=== PATIENT | female | born 1960 | race Caucasian/White ===

== ENCOUNTER → 2020-09-13 13:47 | Outpatient (CLI) | payer OTHER, SELFPAY | PROVIDERS: PCP Family Medicine; Referring Provider Family Medicine; Visit Provider Family Medicine | DX: N39.0 Urinary tract infection, site not specified (principal) | CPT/HCPCS: 87077; 87086; 87088; 87186 ==

== ENCOUNTER 2022-06-01 22:26 | Emergency (ER) | payer OTHER, SELFPAY ==
[2022-06-01 22:31] VITALS: PULSE 112; RESP 36; TEMP 36.4; O2SAT 97; BMI 26.5
--- NOTE | 2022-06-01 22:46 | EDS_ITS ---
HPI HPI - GI History of Present Illness Chief Complaint: Nausea/Vomiting/Diarrhea Informant: patient Nausea/Vomiting/Emesis GI Symptom: Positive for Nausea and Vomiting Onset: Hours (3) Quality: Positive for Nonbilious; Negative for Blood streaks or Coffee ground Severity: Moderate Diarrhea/Melena/Hematochezia GI Symptom: Positive for Diarrhea; Negative for Melena or Hematochezia Onset: Hours (3) Stool Quality: Positive for Watery; Negative for Mucous, Black, Maroon or BRB per rectum Severity: Severe Episodes: 6 Associated Symptoms Associated Symptoms: Negative for Dysuria, Frequency or Hematuria Narrative Narrative: Patient started having vomiting and diarrhea 3 hours ago and has not been able to stop either. She denies any abdominal pain. She has developed chills but does not feel like she has a fever, she cannot stop shaking. She denies any known sick contacts with similar. She denies any suspicious food ingestions including uncooked meats or raw seafood. She has not traveled out of the area recently. She denies any recent antibiotics. She denies any new water sources that she has ingested. She presents during high prevalence of viral gastroenteritis in this area. PFSH PFSH Medical History no medical history no medical history Home Medications ondansetron 4 mg disintegrating tablet 8 mg PO Q8H PRN PRN Nausea #20 tabs 06/02/22 [Rx Last Taken Unknown] Allergy/AdvReac Type Severity Reaction Status Date / Time No Known Allergies Allergy Verified 06/01/22 22:33 Surgical History no surgical history no surgical history Social History Smoking Status: Never smoker ROS ROS ED Constitutional Constitutional ED: Reports chills and malaise; Denies fever(s) Eyes Eyes: Denies change in vision or diplopia ENT ENT ED: Denies rhinorrhea or sore throat Cardiovascular Cardiovascular: Denies chest pain or palpitations Respiratory/Chest Respiratory/Chest: Denies cough or dyspnea Gastrointestinal Gastrointestinal: Reports diarrhea, nausea and vomiting; Denies abdominal pain, coffee ground emesis, hematemesis, hematochezia or melena Genitourinary Genitourinary ED: Denies dysuria or hematuria Musculoskeletal Musculoskeletal: Denies back pain or neck pain Integumentary Denies abscess or rash Neurologic Neurologic: Denies headache(s), paresthesias or weakness Psychiatric Psychiatric: Denies depression or suicidal thoughts EXAM Physical Exam Const Vital Signs: 06/01/22 22:31 06/02/22 00:42 Temperature 97.5 F L Temperature Source Temporal Pulse Rate 112 H Respiratory Rate 36 H Blood Pressure 130/62 H Blood Pressure Mean 84 Pulse Ox 97 99 Oxygen Delivery Method Room Air Room Air Positive well nourished and well developed Constitutional Narrative: Tremulous General Appearance ED: well developed and NAD HEENT Reports moist mucous membranes normocephalic and atraumatic Eyes PERRL and EOMs intact bilaterally Neck full ROM and supple Resp normal respiratory effort and clear to auscultation bilaterally Cardio regular rate, regular rhythm and no murmurs Rate: tachycardic GI non-tender and non-distended GI Narrative: Bowel sounds are present Auscultation: hypoactive bowel sounds Palpation: soft Back/Spine no CVA tenderness General Back: other FROM Extremity normal to inspection and full ROM General Extremety ED: Negative for edema, pulses abnormal or tenderness General Extremity: Negative for edema or pulses abnormal Neuro oriented x3, CN's II-XII intact bilaterally and no sensory deficits noted Sensorium / Orientation: awake and alert Motor Exam: strength 5/5 throughout Psych Mood & Affect: anxious Skin no rashes or lesions noted and no wounds MDM MDM MDM Narrative Medical decision making narrative: Patient was treated with a liter of fluid and Zofran while I obtain some labs, those are all noted. She does have a leukocytosis with predominance of neutrophils, chemistries and liver enzymes are noted, mildly prerenal and slight elevation of alkaline phosphatase which is nonspecific and could be due to vomiting. Patient has no risk factors for bacterial etiologies here, although that is still in the differential, she did eventually have diarrhea here which I am sending for studies, but in the meantime I would assume this is viral until proven otherwise especially given the high prevalence of that in the area recently. She was doing better on reevaluation still little nauseated but had no more vomiting, she was treated with Reglan and felt better still and was up for attempting oral fluids which she tolerated well. Patient produced a small amount of diarrhea it was enough for us to run a fecal white blood cell lactoferrin which was positive. This is nonspecific, but I think in context it would be reasonable to have the patient obtain enteric bacterial panel and C. difficile primarily. She prefers to go home and collect at home given the hour of the night, we are sending outpatient prescriptions for those labs and she can follow-up with her doctor. We will send her home with antiemetics, close outpatient follow-up with her doctor return if worse. Lab Data Attestation: I reviewed the patient's lab results. Labs: Laboratory Results - last 24 hr 06/01/22 06/01/22 22:30 22:30 WBC 14.6 H RBC 5.01 Hgb 15.6 H Hct 47.9 H MCV 95.6 MCH 31.1 MCHC 32.6 RDW Std Deviation 47.0 H RDW Coeff of Charlette 13.2 Plt Count 289 MPV 9.6 Immature Gran % (Auto) 0.200 Neut % (Auto) 92.4 H Lymph % (Auto) 3.1 L [place] % (Auto) 3.5 Eos % (Auto) 0.3 Baso % (Auto) 0.5 Absolute Neuts (auto) 13.5 H Absolute Lymphs (auto) 0.45 L Nucleated RBC % 0 Differential Comment SCANNED Sodium 139 Potassium 3.9 Chloride 103 Carbon Dioxide 21.0 Anion Gap 15 BUN 20 H Creatinine 0.93 Estim Creat Clear Calc 51.22 Est GFR (MDRD) Af Amer 78 Est GFR (MDRD) Non-Af 64 BUN/Creatinine Ratio 21.5 H Glucose 168 H Calcium 9.9 Total Bilirubin 0.70 AST 27 ALT 27 Alkaline Phosphatase 176 H Total Protein 8.7 H Albumin 4.0 Globulin 4.7 H Albumin/Globulin Ratio 0.9 Lipase 152 Discharge Plan Triage Chief Complaint: Nausea/Vomiting/Diarrhea ED Provider: Randy Franklin Dx/Rx/DC Orders Clinical Impression: Gastroenteritis Instructions: ED Gastroenteritis, Viral (Adult) Prescriptions: New ondansetron [ondansetron] 4 mg tablet,disintegrating 8 mg PO Q8H PRN PRN (Reason: Nausea) Qty: 20 0RF Other Ambulatory Orders: ENTERIC PATHOGEN PANEL STOOL (Routine) Timeframe: 3 Days Facility: [facility] [place] - Location: Laboratory Ordered By: Dr. Randy Franklin CDIFF (PCR) (Routine) Timeframe: 3 Days Facility: [facility] [place] - Location: Laboratory Ordered By: Dr. Randy Franklin Primary Care Provider: Chaparro Ornelas Referrals: Chaparro Ornelas MD [Primary Care Provider] - 3-5 Days if not improving Disposition Disposition: Home, Self Care
[2022-06-01 22:53] LABS: Absolute Lymphocyte Count 0.45 X10^3/uL (0.83-4.51); Absolute Neutrophil Count 13.5 X10^3/uL (2.0-7.7); Basophil# 0.07 X10^3/uL; Basophil% 0.5 % (0-1); Eosinophil# 0.04 X10^3/uL; Eosinophils% 0.3 % (0-5); Hematocrit 47.9 % (37-47); Hemoglobin 15.6 g/dL (12.0-15.0); Lymphocyte # 0.45 X10^3/ul (0.83-4.51); Lymphocyte % 3.1 % (19-41); Mean Corp Hgb Conc 32.6 g/dL (32-36); Mean Corpuscular Hgb 31.1 pg (27.0-32.0); Mean Corpuscular Volume 95.6 fL (81-99); Mean Platelet Vol. 9.6 fl (6.2-12.0); Monocyte# 0.51 X10^3/uL; Monocyte% 3.5 % (0-10); NRBC Flagged by Analyzer 0 % (0-5); Neutrophil # 13.46 X10^3/uL (2.7-7.7); Neutrophil % 92.4 % (47-70); POSITIVE DIFFERENTIAL YES; Platelet Count 289 K/mm3 (150-450); RBC Distribution Width CV 13.2 % (11.6-14.6); Red Blood Count 5.01 M/mm3 (4.2-5.4); White Blood Count 14.6 K/mm3 (4.4-11.0)
[2022-06-01] MEDS: 0.9% Normal Saline 1,000 ML 1000 ML IV (23:00)
[2022-06-01] MEDS: Ondansetron 4 MG/2 ML Vial IV (23:01)
[2022-06-01 23:09] LABS: ALB/GLOB Ratio 0.9 RATIO (0.9-2.4); AST(SGOT) 27 U/L (15-37); Alanine Aminotransfer ALT/SGPT 27 U/L (13-56); Alkaline Phosphatase 176 U/L (45-117); Anion Gap 15 (5-15); BUN 20 mg/dL (7-18); BUN/Creat Ratio 21.5 RATIO (10-20); Calcium,Total 9.9 mg/dL (8.5-10.1); Chloride 103 mmol/L (98-107); Creatinine, Serum 0.93 mg/dL (0.55-1.02); EST Glomerular Filtration Rate 64 mL/min (>60); Est Glom Filt Rate - Afr Amer 78 mL/min (>60); Estimated Creatinine Clearance 51.22 ml/min; Globulin 4.7 g/dL (2.2-4.2); Glucose 168 mg/dL (74-106); Lipase 152 U/L (73-393); Potassium 3.9 mmol/L (3.5-5.1); Protein, Total 8.7 g/dL (6.4-8.2); Sodium Level 139 mmol/L (136-145)
[2022-06-01 23:11] LABS: Differential Comment SCANNED; Differential Indicated SCAN CRITERIA MET
[2022-06-01] MEDS: Metoclopramide 10 MG/2 ML Vial 5 MG IV (23:55)
[2022-06-02 00:42] VITALS: BP 130/62; O2SAT 99
[2022-06-02 01:51] VITALS: BP 131/64; PULSE 98; RESP 16; O2SAT 97
== END 2022-06-02 02:10 | disposition home or self-care (01) ==
PROVIDERS: Emergency Provider Emergency Medicine; PCP Family Medicine; Visit Provider Emergency Medicine
DX: K52.9 Noninfective gastroenteritis and colitis, unspecified (principal)
CPT/HCPCS: 80053; 83630; 83690; 85025; 96361; 96374; 96375; 99285; J7030; J2405

== ENCOUNTER 2024-05-20 08:13 | Outpatient (CLI) | payer MEDICARE, OTHER, SELFPAY ==
[2024-05-20 10:08] LABS: Absolute Lymphocyte Count 1.19 X10^3/uL (0.83-4.51); Absolute Neutrophil Count 6.4 X10^3/uL (2.0-7.7); Basophil# 0.09 X10^3/uL; Basophil% 1.1 % (0-1); Eosinophil# 0.08 X10^3/uL; Eosinophils% 0.9 % (0-5); Hematocrit 43.1 % (37-47); Hemoglobin 14.5 g/dL (12.0-15.0); Lymphocyte # 1.19 X10^3/ul (0.83-4.51); Mean Corp Hgb Conc 33.6 g/dL (32-36); Mean Corpuscular Hgb 31.7 pg (27.0-32.0); Mean Corpuscular Volume 94.3 fL (81-99); Monocyte# 0.75 X10^3/uL; Monocyte% 8.8 % (0-10); NRBC Flagged by Analyzer 0 % (0-5); Neutrophil # 6.39 X10^3/uL (2.7-7.7); Neutrophil % 74.8 % (47-70); Platelet Count 271 K/mm3 (150-450); RBC Distribution Width CV 12.8 % (11.6-14.6); RBC Distribution Width SD 44.8 fl (35.1-43.9); Red Blood Count 4.57 M/mm3 (4.2-5.4); White Blood Count 8.5 K/mm3 (4.4-11.0)
[2024-05-20 12:00] LABS: ALB/GLOB Ratio 1.3 RATIO (0.9-2.4); AST(SGOT) 24 U/L (<=31); Alanine Aminotransfer ALT/SGPT 16 U/L (<=34); Albumin, Serum 4.1 g/dL (3.4-4.8); Alkaline Phosphatase 133 U/L (35-104); Anion Gap 15 (5-15); BUN 15 mg/dL (4-19); BUN/Creat Ratio 17.8 RATIO (10-20); Calcium,Total 9.7 mg/dL (7.6-11.0); Carbon Dioxide 21.2 mmol/L (21.0-32.0); Chloride 104 mmol/L (98-108); Creatinine, Serum 0.83 mg/dL (0.70-1.20); EST Glomerular Filtration Rate 78 (>60); Globulin 3.3 g/dL (2.2-4.2); Glucose 113 mg/dL (70-99); Potassium 3.9 mmol/L (3.3-5.1); Protein, Total 7.4 g/dL (5.9-8.4); Sodium Level 141 mmol/L (133-145); Total Bilirubin 0.51 mg/dL (0.00-1.30)
[2024-05-20 12:13] LABS: Cholesterol 220 mg/dL (<=200); High Density Lipoprotein 87 mg/dL; Low Density Lipoprotein Calc. 119 mg/dL; Triglycerides 68 mg/dL; Very Low Density Lipoprotein 14 mg/dL (5-40); cholesterol:hdl ratio screen 2.53
[2024-05-20 12:15] LABS: Vitamin D,25 Hydroxy 32.8 ng/mL (30-100)
== END 2024-05-20 23:59 | disposition home or self-care (01) ==
LOC: MFPLAB 08:15
PROVIDERS: PCP Family Medicine
DX: Z00.00 Encounter for general adult medical examination without abnormal findings (principal); R03.0 Elevated blood-pressure reading, without diagnosis of hypertension
CPT/HCPCS: 36415; 80053; 80061; 82306; 84443; 85025